=== PATIENT | female | born 1995 ===

== ENCOUNTER 2017-10-13 13:58 | Emergency (ER) | payer BC ==
[~2017-10-13] VITALS: Ht 152.4 cm; Wt 47.8 kg
[2017-10-13 14:01] VITALS: TEMP 36.8; Ht 152.4 cm; Wt 47.8 kg
[2017-10-13] MEDS ORDERED: SODIUM CHLORIDE 0.9% 1000ML 1,000 ML IV STA (14:45)
[2017-10-13] MEDS ORDERED: MoRPHine SULFATE 2 MG/ML CARP IV STA (14:45)
[2017-10-13] MEDS ORDERED: SODIUM CHLORIDE 0.9% 500ML 500 ML IV STA (14:45)
[2017-10-13] MEDS ORDERED: ONDANSETRON INJ 2 MG/ML 2 ML VIAL IV STA (14:45)
[2017-10-13] MEDS ORDERED: OPTIRAY 320 IV PRN (15:00)
--- NOTE | 2017-10-13 15:03 | EMERGENCY ROOM VISIT NOTE ---
History Report prepared by Mulu: Rachel Hernandez Under the Supervision of: Dr. Ivana Blakely M.D. First contact with patient: 14:07 Chief Complaint: RECTAL PAIN Stated Complaint: HEMORROIDS History of Present Illness The patient is a 22 year old female who presents to the Emergency Room with complaints of worsening rectal pain starting this morning. The patient states that she believes that she has internal hemorrhoids. She reports that she has not been able to go to the bathroom for 2 days. She states that her last bowel movement was normal. She reports that it does not feel like constipation, but reports that it feels like something is blocking it. The patient states that when she tried to go to the bathroom this morning she was bleeding. She reports that the blood was not bright red, but it was not dark either. She states that it was somewhere in between. The patient denies urinary symptoms, fever, drainage, the chance of , any anal intercourse, a history of surgeries , and a history of perirectal abscess. The patient notes a history of IBS, but states that she has never seen GI. The patient notes that her last menstrual cycle ended yesterday. Source of History: patient Onset: this morning Position: other (rectum) Quality: other (bleeding) Timing: worsening Associated Symptoms: No urinary symptoms Note: The patient denies drainage. Review of Systems See HPI for pertinent positives & negatives. A total of 10 systems reviewed and were otherwise negative. Past Medical & Surgical Medical Problems: (1) HTN (hypertension) (2) IBS (irritable bowel syndrome) Family History Hypertension Social History Smoking Status: Never Smoker Alcohol Use: other (twice a week) Marital Status: single Housing Status: lives with roommate Occupation Status: employed Current/Historical Medications No Active Prescriptions or Reported Meds Allergies Coded Allergies: No Known Allergies (Unverified , 10/13/17) Physical Exam Vital Signs Date Time Temp Pulse Resp B/P (MAP) Pulse Ox O2 Delivery O2 Flow Rate FiO2 10/13/17 18:57 61 18 109/68 100 10/13/17 16:55 59 18 122/72 100 Room Air 10/13/17 14:01 36.8 58 16 112/73 99 Room Air Physical Exam Vital signs reviewed. General: Well-appearing, in no significant distress. HEENT: No scleral icterus, PERRLA, neck supple. Atraumatic. Cardiovascular: Regular rate and rhythm, no extra sounds. Pulmonary: Clear to auscultation bilaterally, normal work of breathing. Abdomen: Soft, nontender, nondistended, positive bowel sounds. Rectal: Guaiac negative. Normal external mucosa. Tender on exam. Musculoskeletal: Atraumatic, no peripheral edema. Neurologic: Patient awake alert and oriented x 3 Skin: Warm, dry, no rash Medical Decision & Procedures ER Provider Diagnostic Interpretation: Radiology results as stated below per my review and radiologist interpretation: ABDOMEN AND PELVIS CT WITH IV AND ORAL CONTRAST CT DOSE: 263.47 mGy.cm HISTORY: Acute rectal pain with history of irritable bowel syndrome rectal pain, h/o "severe IBS" no IBD dx TECHNIQUE: Multiaxial CT images of the abdomen and pelvis were performed following the use of intravenous and oral contrast. A dose lowering technique was utilized adhering to the principles of ALARA. COMPARISON STUDY: None. FINDINGS: Lung bases appear clear. No pneumatosis or pneumoperitoneum. Imaged inferior cardiac chambers are unremarkable. Gallbladder, liver, spleen, pancreas and adrenal glands appear unremarkable. Kidneys and ureters are within normal limits. Urinary bladder distention measures up to 12 cm in length. Mildly heterogeneous appearance of the uterus with complex structure of the left adnexum measuring 3.1 x 2.7 cm. Follicular changes of the right ovary. Normal appearance of the aorta. No bulky adenopathy. No bowel obstruction identified. Suggestion of mild rectal wall thickening without significant surrounding inflammatory changes. Moderate stool volume of the rectosigmoid. Normal appendix. No mesenteric inflammatory changes or ascites. Soft tissues are unremarkable. Extremely dense breast parenchyma. Soft tissues are unremarkable. Bones appear intact. IMPRESSION: 1. Suggestion of mild rectal wall thickening without significant associated inflammatory changes. Correlate with clinical exam. 2. Moderate stool volume of the rectosigmoid suggests constipation. No bowel obstruction. 3. Normal appendix. 4. Heterogeneous 3.1 cm structure about the left adnexum is suspicious for hemorrhagic ovarian cyst or pedunculated subserosal leiomyoma. This finding could be correlated with pelvic ultrasound if clinically indicated. 5. Urinary bladder distention. Electronically signed by: Yo Sharma M.D. 10/13/2017 5:48 PM Dictated Date/Time: 10/13/2017 5:34 PM Laboratory Results 10/13/17 15:45 Red Blood Count 5.38, Mean Corpuscular Volume 77.7, Mean Corpuscular Hemoglobin 25.3, Mean Corpuscular Hemoglobin Concent 32.5, Mean Platelet Volume 12.1, Neutrophils (%) (Auto) 44.5, Lymphocytes (%) (Auto) 49.0, Monocytes (%) (Auto) 5.1, Eosinophils (%) (Auto) 0.5, Basophils (%) (Auto) 0.7, Neutrophils # (Auto) 1.82, Lymphocytes # (Auto) 2.01, Monocytes # (Auto) 0.21, Eosinophils # (Auto) 0.02, Basophils # (Auto) 0.03 10/13/17 15:45 Test 10/13/17 15:45 White Blood Count 4.10 K/uL (4.8-10.8) Red Blood Count 5.38 M/uL (4.2-5.4) Hemoglobin 13.6 g/dL (12.0-16.0) Hematocrit 41.8 % (37-47) Mean Corpuscular Volume 77.7 fL (80-100) Mean Corpuscular Hemoglobin 25.3 pg (25-34) Mean Corpuscular Hemoglobin Concent 32.5 g/dl (32-36) Platelet Count 208 K/uL (130-400) Mean Platelet Volume 12.1 fL (7.4-10.4) Neutrophils (%) (Auto) 44.5 % Lymphocytes (%) (Auto) 49.0 % Monocytes (%) (Auto) 5.1 % Eosinophils (%) (Auto) 0.5 % Basophils (%) (Auto) 0.7 % Neutrophils # (Auto) 1.82 K/uL (1.4-6.5) Lymphocytes # (Auto) 2.01 K/uL (1.2-3.4) Monocytes # (Auto) 0.21 K/uL (0.11-0.59) Eosinophils # (Auto) 0.02 K/uL (0-0.5) Basophils # (Auto) 0.03 K/uL (0-0.2) RDW Standard Deviation 36.5 fL (36.4-46.3) RDW Coefficient of Variation 13.0 % (11.5-14.5) Immature Granulocyte % (Auto) 0.2 % Immature Granulocyte # (Auto) 0.01 K/uL (0.00-0.02) Anion Gap 5.0 mmol/L (3-11) Est Creatinine Clear Calc Drug Dose 82.7 ml/min Estimated GFR () 128.1 Estimated GFR (Non- 110.6 BUN/Creatinine Ratio 10.6 (10-20) Calcium Level 9.1 mg/dl (8.5-10.1) Total Bilirubin 0.5 mg/dl (0.2-1) Direct Bilirubin mg/dl (0-0.2) Aspartate Amino Transf (AST/SGOT) 54 U/L (15-37) Alanine Aminotransferase (ALT/SGPT) 70 U/L (12-78) Alkaline Phosphatase 82 U/L (45-117) Total Protein 9.4 gm/dl (6.4-8.2) Albumin 4.5 gm/dl (3.4-5.0) Chemistry Specimen Hemolysis Laboratory results per my review. Medications Administered Medications (Trade) Dose Ordered Sig/Buster Route Start Time Stop Time Status Last Admin Dose Admin Sodium Chloride 500 ml @ 999 mls/hr Q31M STAT IV 10/13/17 14:45 10/13/17 15:15 DC 10/13/17 16:14 999 MLS/HR Morphine Sulfate (MoRPHine SULFATE INJ) 2 mg NOW STAT IV 10/13/17 14:45 10/13/17 14:47 DC 10/13/17 16:14 2 MG Ondansetron HCl (Zofran Inj) 4 mg NOW STAT IV 10/13/17 14:45 10/13/17 14:47 DC 10/13/17 16:13 4 MG ED Course 1435: Past medical records reviewed. The patient was evaluated in room C5. A complete history and physical examination was performed. 1445: Ordered Zofran Inj 4 mg IV, Morphine Sulfate 2 mg IV, NSS 500 ml @ 999 mls /hr IV, NSS 1000 ml @ 125 mls/hr IV. 1809: Upon reevaluation, the patient appeared to have improvement of her symptoms. I discussed findings with her. She verbalized agreement of the treatment plan. The patient was discharged home. Medical Decision Differential diagnosis: Etiologies such as diverticulosis, AVM, coagulopathy, colitis, inflammatory bowel disease, malignancy, July-Lubin tear, esophagitis, peptic ulcer disease , variceal bleed, gastritis, epistaxis, fissure, hemorrhoids, perirectal abscess , as well as others were entertained. This patient was evaluated and appeared to be in no significant distress. Physical examination reveals significant tenderness on rectal exam. CT scan of the abdomen and pelvis was performed. The study is significant for fecal retention and a hemorrhagic ovarian cyst. Patient is guaiac negative. Laboratory work is fairly unrevealing. The patient was informed of the findings. She was feeling improved after IV hydration, IV morphine and Zofran. She was advised to continue ibuprofen as needed for pain. She will follow-up with [facility] for evaluation of the ovarian cyst. Patient will return to the emergency department for worsening of symptoms or any medical concerns. Medication Reconcilliation Current Medication List: was personally reviewed by me Blood Pressure Screening Patient's blood pressure: Normal blood pressure Blood pressure disposition: Did not require urgent referral Impression Primary Impression: Hemorrhagic ovarian cyst Additional Impression: Constipation Scribe Attestation The scribe's documentation has been prepared under my direction and personally reviewed by me in its entirety. I confirm that the note above accurately reflects all work, treatment, procedures, and medical decision making performed by me. Departure Information Dispostion Home / Self-Care Prescriptions No Active Prescriptions or Reported Meds Referrals Alicia Dominguez MD (PCP) Forms HOME CARE DOCUMENTATION FORM, IMPORTANT VISIT INFORMATION, WORK / SCHOOL INSTRUCTIONS Patient Instructions My [facility] Additional Instructions Diagnosis: Constipation, hemorrhagic ovarian cyst Colace 100 mg twice daily to keep stool soft. Ibuprofen 600 mg every 6 hours as needed for pain with food. Increase the fiber and water in your diet. Follow-up with [facility]/gynecology for reevaluation of the ovarian cyst. Return to the ER for worsening of symptoms or any medical concerns. Problem Qualifiers
[2017-10-13 16:04] LABS: BASO % 0.7 %; BASO ABS # 0.03 K/uL (0-0.2); EOS % 0.5 %; EOS ABS # 0.02 K/uL (0-0.5); HEMATOCRIT 41.8 % (37-47); HEMOGLOBIN 13.6 g/dL (12.0-16.0); IG# 0.01 K/uL (0.00-0.02); LYMPH ABS # 2.01 K/uL (1.2-3.4); MEAN CELL VOLUME 77.7 fL (80-100); MEAN CORPUSCULAR HEMOGLOBIN 25.3 pg (25-34); MEAN CORPUSCULAR HGB CONC 32.5 g/dl (32-36); MEAN PLATELET VOLUME 12.1 fL (7.4-10.4); MONO % 5.1 %; MONO ABS # 0.21 K/uL (0.11-0.59); NEUT % 44.5 %; NEUT ABS # 1.82 K/uL (1.4-6.5); PLATELET COUNT 208 K/uL (130-400); RED CELL DISTRIBUTION WIDTH SD 36.5 fL (36.4-46.3)
[2017-10-13 16:30] LABS: ALBUMIN 4.5 gm/dl (3.4-5.0); CALCIUM 9.1 mg/dl (8.5-10.1); CREATININE 0.76 mg/dl (0.60-1.20); POTASSIUM 4.5 mmol/L (3.5-5.1); TOTAL PROTEIN 9.4 gm/dl (6.4-8.2)
--- NOTE | 2017-10-13 17:50 | DIAGNOSTIC IMAGING REPORT ---
ABDOMEN AND PELVIS CT WITH IV AND ORAL CONTRAST CT DOSE: 263.47 mGy.cm HISTORY: Acute rectal pain with history of irritable bowel syndrome rectal pain, h/o "severe IBS" no IBD dx TECHNIQUE: Multiaxial CT images of the abdomen and pelvis were performed following the use of intravenous and oral contrast. A dose lowering technique was utilized adhering to the principles of ALARA. COMPARISON STUDY: None. FINDINGS: Lung bases appear clear. No pneumatosis or pneumoperitoneum. Imaged inferior cardiac chambers are unremarkable. Gallbladder, liver, spleen, pancreas and adrenal glands appear unremarkable. Kidneys and ureters are within normal limits. Urinary bladder distention measures up to 12 cm in length. Mildly heterogeneous appearance of the uterus with complex structure of the left adnexum measuring 3.1 x 2.7 cm. Follicular changes of the right ovary. Normal appearance of the aorta. No bulky adenopathy. No bowel obstruction identified. Suggestion of mild rectal wall thickening without significant surrounding inflammatory changes. Moderate stool volume of the rectosigmoid. Normal appendix. No mesenteric inflammatory changes or ascites. Soft tissues are unremarkable. Extremely dense breast parenchyma. Soft tissues are unremarkable. Bones appear intact. IMPRESSION: 1. Suggestion of mild rectal wall thickening without significant associated inflammatory changes. Correlate with clinical exam. 2. Moderate stool volume of the rectosigmoid suggests constipation. No bowel obstruction. 3. Normal appendix. 4. Heterogeneous 3.1 cm structure about the left adnexum is suspicious for hemorrhagic ovarian cyst or pedunculated subserosal leiomyoma. This finding could be correlated with pelvic ultrasound if clinically indicated. 5. Urinary bladder distention. Electronically signed by: Yo Sharma M.D. 10/13/2017 5:48 PM Dictated Date/Time: 10/13/2017 5:34 PM
[2017-10-13 18:57] VITALS: BP 109/68; PULSE 61; O2SAT 100
== END 2017-10-13 18:59 | disposition home or self-care (01) ==
LOC: C.EDB 14:00 → C.EDC 18:59
DX: N83.202 Unspecified ovarian cyst, left side (principal); K59.00 Constipation, unspecified; I10 Essential (primary) hypertension; K58.9 Irritable bowel syndrome, unspecified; Z82.49 Family history of ischemic heart disease and other diseases of the circulatory system